=== PATIENT | female | born 1960 | race Caucasian/White ===

== ENCOUNTER 2017-07-23 20:14 | Emergency (ER) | payer MEDICARE, MEDICAID ==
[~2017-07-23] VITALS: Ht 167.6 cm; Wt 70.8 kg
[2017-07-23] MEDS ORDERED: ketorolac trometh inj. 60 MG/2 ML VIAL IM ONE (23:25)
[2017-07-23] MEDS ORDERED: CefTRIAXone 1000mg IM Kit (w/lidocaine diluent) IM ONE (23:25)
[2017-07-23] MEDS ORDERED: ipratropium/albuterol 3ml nebule NEB ONE (23:30)
[2017-07-24] MEDS ORDERED: AZIT500T5 PO (00:17)
[2017-07-24] MEDS ORDERED: ALBU6.7H INH (00:17)
[2017-07-24 00:29] VITALS: BP 116/60
== END 2017-07-24 00:31 | disposition home or self-care (01) ==
LOC: ER 20:16
DX: J06.9 Acute upper respiratory infection, unspecified (principal); E78.00 Pure hypercholesterolemia, unspecified; Z87.891 Personal history of nicotine dependence; Z98.890 Other specified postprocedural states; Z79.899 Other long term (current) drug therapy
CPT/HCPCS: 71045; 94640; 94760; 96372; 99284; J0696; J1885

== ENCOUNTER 2021-10-04 07:24 | Emergency (ER) | payer BC, MEDICAID ==
[~2021-10-04] VITALS: Ht 170.2 cm; Wt 60.8 kg
[~2021-10-04 07:24] MED LIST: ALBU6.7H9 INH; AZIT500T9 PO
[2021-10-04 07:26] VITALS: BP 132/58
[2021-10-04] MEDS ORDERED: AMOX500C2 PO (07:49)
[2021-10-04] MEDS ORDERED: ibuprofen tablet 400 MG TABLET PO ONE (07:50)
[2021-10-04] MEDS ORDERED: acetaminophen 325mg tablet PO ONE (07:50)
== END 2021-10-04 08:02 | disposition home or self-care (01) ==
LOC: ER 07:25
DX: J02.0 Streptococcal pharyngitis (principal); G89.29 Other chronic pain; F17.200 Nicotine dependence, unspecified, uncomplicated; Z98.890 Other specified postprocedural states; Z79.2 Long term (current) use of antibiotics; Z79.899 Other long term (current) drug therapy
CPT/HCPCS: 99283